=== PATIENT | male | born 1995 | race Caucasian/White ===

== ENCOUNTER 2025-06-15 16:07 | Emergency (ER) | payer OTHER, SELFPAY ==
[2025-06-15 16:19] VITALS: BP 129/81; PULSE 82; RESP 18; TEMP 37.3; O2SAT 98
--- NOTE | 2025-06-15 16:19 | ED_ITS ---
HPI - Ear Problem General Chief complaint: Ear Stated complaint: Ears Irritation Time Seen by Provider: 06/15/25 16:19 Source: patient Mode of arrival: ambulatory Limitations: no limitations History of Present Illness HPI Narrative: 30-year-old male presents with complaint of sinus congestion and pressure for the past 12 days. Reports bilateral ear pain for the past 2-3 days. Positive fatigue and body aches. Using [id number] Flonase, DayQuil NyQuil cold and Sinus. All systems reviewed and negative except as noted above. Related Data Allergies Allergy/AdvReac Type Severity Reaction Status Date / Time No Known Allergies Allergy Verified 06/15/25 16:24 [facility] Comments At time of signature, agree with nursing past medical, surgical, social and family history. There is no relevant family history pertinent to the presenting complaint. Exam Narrative: GENERAL: This is a well-nourished, well-developed patient, in no apparent distress. HEAD: normocephalic, atraumatic. EYES: PERRL. Sclera clear/white. Vision is grossly intact. EARS: External ears normal, auditory canals clear and without drainage, Fluid bilateral TMs, injected without perforation. Hearing grossly intact. NOSE: External nose normal with Purulent nasal drainage, erythema and swelling to bilateral nares. Maxillary sinus tenderness on palpation. THROAT: Mucous membranes moist, Erythematous postnasal drainage. No swelling or exudates. NECK: Neck supple, non-tender without lymphadenopathy, masses or thyromegaly. CARDIOVASCULAR: Regular rate and rhythm without murmurs, gallops, or rubs. RESPIRATORY: Clear to auscultation. Breath sounds equal bilaterally. No wheezes, rales, or rhonchi. SKIN: warm, Dry, intact with no suspicious lesions or rash, good texture and turgor. NEURO: awake, alert, and oriented to person, place and time. There were no obvious focal neurologic abnormalities. EXTREMITIES: No joint tenderness, effusion, or edema noted. Course Course Level of Care: Express Care Visit Vital Signs Vital signs: Reviewed Medical Decision Making MDM Narrative Medical decision making narrative: will treat patient for bacterial sinusitis due to duration of symptoms and exam findings. Patient is alert, nontoxic. Discharge Plan Discharge Clinical Impression: Acute bacterial sinusitis, Acute allergic conjunctivitis of both eyes Patient Disposition: Home Condition: Stable Instructions: Antibiotic Form, Sinusitis (ED) Additional Instructions: Take antibiotic as prescribed until gone. Continue Flonase and Zyrtec as directed on packaging. Purchase [id number] pseudoephedrine and take as directed on packaging. Drink at least 64 oz of water a day. See your doctor if symptoms are not improving. Patient Language: Pakistani Prescriptions: New amoxicillin-pot clavulanate 875-125 mg tablet 1 tablet PO Q12H 10 Days Qty: 20 0RF olopatadine [Pataday Twice Daily Relief] 0.1 % drops 1 drp EACH EYE BID Qty: 5 0RF Rx Instructions: separate doses by at least 6-8 hours Follow-up/Referrals: PHYSICIAN,[facility] [Primary Care Provider, Internal Medicine] Time of Disposition: 16:28
== END 2025-06-15 16:30 | disposition home or self-care (01) ==
PROVIDERS: Emergency Provider Nurse Practitioner Family
DX: J01.90 Acute sinusitis, unspecified (principal); B96.89 Other specified bacterial agents as the cause of diseases classified elsewhere; H10.33 Unspecified acute conjunctivitis, bilateral
CPT/HCPCS: 99203; G0463